=== PATIENT | female | born 1995 | race Caucasian/White ===

== ENCOUNTER 2017-02-11 18:39 | Emergency (ER) | payer OTHER ==
[~2017-02-11] VITALS: Ht 160 cm; Wt 61.6 kg
[2017-02-11 18:44] VITALS: Ht 160 cm; Wt 61.6 kg
[2017-02-11] MEDS ORDERED: SODIUM CHLORIDE 0.9% 1000ML 1,000 ML IV STA (19:26)
[2017-02-11] MEDS ORDERED: GI COCKTAIL PO STA (19:26)
[2017-02-11] MEDS ORDERED: SUCR1TAB PO (19:49)
[2017-02-11] MEDS ORDERED: CYM/30 PO (19:49)
[2017-02-11] MEDS ORDERED: PRLSR20 PO (19:49)
[2017-02-11] MEDS ORDERED: ONDA4TAB10 SL (19:49)
--- NOTE | 2017-02-11 19:50 | EMERGENCY ROOM VISIT NOTE ---
History Report prepared by Elda: Shi Mcgrath Under the Supervision of: Dr. Patricio William M.D. First contact with patient: 18:59 Chief Complaint: ILLNESS Stated Complaint: CHEST PAIN, NAUSEA, LIGHTHEADED, DIZZY History of Present Illness The patient is a 21 year old female who presents to the Emergency Room with complaints of a constant illness beginning 3 weeks ago. The patient states that she has had intermittent chest pain, intermittent shortness of breath, and stabbing right rib pain over the last few weeks. She reports that she has had constant nausea and complains of dizziness, lightheadedness, dark urine, chills , and decreased appetite. She notes that she saw her PCP 2 weeks ago for these symptoms and was put on Prilosec and Zofran without relief of her symptoms. The patient states that she has been seen in the [place] ED and got nausea and acid reflux medication there as well and was told to follow up with her PCP. She reports the she cannot be seen by her PCP until the end of this week. Today she states that her symptoms have worsened. She notes that her chest pain is not worsened by eating or exertion and lasts for 5-10 minutes intermittently. She denies any fever, cough, congestion, chance of , and dysuria. The patient reports no family history of heart attacks at a young age or gallstones. She does state that greasy meals intermittently worsen her abdominal pain. She notes that she previously had diarrhea but now has some constipation. Source of History: patient Onset: 3 weeks ago Position: other (global) Quality: other (illness) Timing: constant Modifying Factors (Worsening): other (none) Associated Symptoms: + chills, + chest pain, + SOB, + nausea, No fevers, No cough Note: Pt complains of dizziness, lightheadedness, dark urine, and decreased appetite. She denies any congestion, chance of , and dysuria. Review of Systems See HPI for pertinent positives and negatives. A total of ten systems were reviewed and were otherwise negative. Past Medical & Surgical Medical Problems: (1) No Known Active Medical Problems Family History No pertinent family history stated. Social History Smoking Status: Current Every Day Smoker Marital Status: Housing Status: lives with significant other Current/Historical Medications Scheduled Duloxetine HCl (Cymbalta), 30 MG PO DAILY Famotidine (Pepcid), 1 TAB PO BID Nitrofurantoin Macrocrystals (Macrodantin), 1 CAP PO BID Omeprazole (Prilosec), 20 MG PO DAILY Sucralfate (Sucralfate), 1 GM PO QID Scheduled PRN Ondasetron Odt (Zofran Odt), 4 MG SL Q6H PRN for Nausea Allergies Coded Allergies: No Known Allergies (Unverified , 02/11/17) Physical Exam Vital Signs Date Time Temp Pulse Resp B/P (MAP) Pulse Ox O2 Delivery O2 Flow Rate FiO2 02/11/17 22:48 36.6 69 18 113/67 99 02/11/17 21:20 68 20 102/61 99 Room Air 02/11/17 18:44 36.6 125 16 109/68 96 Room Air Physical Exam GENERAL: Awake, alert, well-appearing, in no distress HENT: Normocephalic, atraumatic. Dry mucous membranes. EYES: Normal conjunctiva. Sclera non-icteric. NECK: Supple. No nuchal rigidity. FROM. No JVD. RESPIRATORY: Clear to auscultation. CARDIAC: Regular rate, normal rhythm. Extremities warm and well perfused. Pulses equal. ABDOMEN: Soft, non-distended. Mild tenderness in epigastrium and RUQ, no peritoneal signs. No rebound or guarding. No masses. RECTAL: Deferred. MUSCULOSKELETAL: Chest examination reveals no tenderness. The back is symmetrical on inspection without obvious abnormality. There is no CVA tenderness to palpation. No joint edema. LOWER EXTREMITIES: Calves are equal size bilaterally and non-tender. No edema. No discoloration. NEURO: Normal sensorium. No sensory or motor deficits noted. SKIN: No rash or jaundice noted. Medical Decision & Procedures ER Provider Diagnostic Interpretation: X-ray: Per my interpretation, radiologist review. CHEST ONE VIEW PORTABLE FINDINGS: Cardiomediastinal silhouette normal. Lungs and pleural spaces clear. Osseous structures and upper abdomen normal. IMPRESSION: 1. No acute cardiopulmonary disease. Electronically signed by: Prabhu Mcgill M.D. 02/11/2017 7:58 PM Dictated Date/Time: 02/11/2017 7:58 PM RUQ ULTRASOUND No gallstones no pericholecystic fluid. Laboratory Results 02/11/17 20:13 Red Blood Count 4.80, Mean Corpuscular Volume 87.5, Mean Corpuscular Hemoglobin 30.6, Mean Corpuscular Hemoglobin Concent 35.0, Mean Platelet Volume 10.3, Neutrophils (%) (Auto) 50.7, Lymphocytes (%) (Auto) 38.5, Monocytes (%) (Auto) 7.8, Eosinophils (%) (Auto) 2.3, Basophils (%) (Auto) 0.7, Neutrophils # (Auto) 3.83, Lymphocytes # (Auto) 2.91, Monocytes # (Auto) 0.59, Eosinophils # (Auto) 0.17, Basophils # (Auto) 0.05 02/11/17 20:13 Test 02/11/17 20:10 02/11/17 20:13 Urine Color YELLOW Urine Appearance CLOUDY (CLEAR) Urine pH 6.5 (4.5-7.5) Urine Specific [place] 1.024 (1.000-1.030) Urine Protein NEG (NEG) Urine Glucose (UA) NEG (NEG) Urine Ketones NEG (NEG) Urine Occult Blood TRACE (NEG) Urine Nitrite NEG (NEG) Urine Bilirubin NEG (NEG) Urine Urobilinogen NEG (NEG) Urine Leukocyte Esterase MODERATE (NEG) Urine WBC (Auto) >30 /hpf (0-5) Urine RBC (Auto) 5-10 /hpf (0-4) Urine Hyaline Casts (Auto) 0 /lpf (0-5) Urine Epithelial Cells (Auto) >30 /lpf (0-5) Urine Bacteria (Auto) 1+ (NEG) Urine Pathogenic Casts /lpf (0) Urine Mucus PRESENT (NONE PRSENT) White Blood Count 7.55 K/uL (4.8-10.8) Red Blood Count 4.80 M/uL (4.2-5.4) Hemoglobin 14.7 g/dL (12.0-16.0) Hematocrit 42.0 % (37-47) Mean Corpuscular Volume 87.5 fL (80-100) Mean Corpuscular Hemoglobin 30.6 pg (25-34) Mean Corpuscular Hemoglobin Concent 35.0 g/dl (32-36) Platelet Count 215 K/uL (130-400) Mean Platelet Volume 10.3 fL (7.4-10.4) Neutrophils (%) (Auto) 50.7 % Lymphocytes (%) (Auto) 38.5 % Monocytes (%) (Auto) 7.8 % Eosinophils (%) (Auto) 2.3 % Basophils (%) (Auto) 0.7 % Neutrophils # (Auto) 3.83 K/uL (1.4-6.5) Lymphocytes # (Auto) 2.91 K/uL (1.2-3.4) Monocytes # (Auto) 0.59 K/uL (0.11-0.59) Eosinophils # (Auto) 0.17 K/uL (0-0.5) Basophils # (Auto) 0.05 K/uL (0-0.2) RDW Standard Deviation 40.4 fL (36.4-46.3) RDW Coefficient of Variation 12.6 % (11.5-14.5) Immature Granulocyte % (Auto) 0.0 % Immature Granulocyte # (Auto) 0.00 K/uL (0.00-0.02) Anion Gap 5.0 mmol/L (3-11) Est Creatinine Clear Calc Drug Dose 95.2 ml/min Estimated GFR () 128.1 Estimated GFR (Non- 110.6 BUN/Creatinine Ratio 11.4 (10-20) Calcium Level 8.9 mg/dl (8.5-10.1) Total Bilirubin 0.8 mg/dl (0.2-1) Direct Bilirubin 0.2 mg/dl (0-0.2) Aspartate Amino Transf (AST/SGOT) 12 U/L (15-37) Alanine Aminotransferase (ALT/SGPT) 24 U/L (12-78) Alkaline Phosphatase 72 U/L (45-117) Troponin I < 0.015 ng/ml (0-0.045) Total Protein 7.6 gm/dl (6.4-8.2) Albumin 3.9 gm/dl (3.4-5.0) Lipase 115 U/L (73-393) Human Chorionic Gonadotropin, Qual NEG (NEG) Laboratory results reviewed by me Medications Administered Medications (Trade) Dose Ordered Sig/Luke Route Start Time Stop Time Status Last Admin Dose Admin Sodium Chloride 1,000 ml @ 999 mls/hr Q1H1M STAT IV 02/11/17 19:26 02/11/17 20:26 DC 02/11/17 19:26 999 MLS/HR Miscellaneous Medication (Gi Cocktail) 24 ml NOW STAT PO 02/11/17 19:26 02/11/17 19:29 DC 02/11/17 19:26 24 ML Al Hydroxide/Mg Hydroxide (Maalox Susp) 30 ml STK-MED ONCE .ROUTE 02/11/17 20:14 02/11/17 20:15 DC 02/11/17 20:14 30 ML Lidocaine HCl (Viscous Lidocaine 2% Soln) 20 ml STK-MED ONCE .ROUTE 02/11/17 20:14 02/11/17 20:15 DC 02/11/17 20:14 20 ML Famotidine (Pepcid 20mg/100 ml) 20 mg STK-MED ONCE .ROUTE 02/11/17 21:15 02/11/17 21:16 DC 02/11/17 21:17 20 MG ECG Indication: chest pain Rate (beats per minute): 84 Rhythm: normal sinus Findings: no acute ischemic change, other (normal intervals) ED Course 1858: The patient was evaluated in room B12B. A complete history and physical exam was performed. 1925: GI Cocktail 24ml PO, Sodium Chloride 1000 ml @ 999 mls/hr IV. 2110: Famotidine 20mg/Dextrose 102ml @ 200mls/hr IV. 2114: Famotidine 20mg. 2212: I reevaluated and updated the patient. 2225: I reevaluated the patient. Discussed results and discharge instructions: She verbalized understanding and agreement. The patient is ready for discharge. Medical Decision I reviewed the patient's past medical history, medications, and the nursing notes as described above. Differential diagnosis includes gastritis, peptic ulcer, biliary colic, less likely cholecystitis, ari/myocarditis, less likely ACS. Patient presents to ED with c/o of epigastric pain, CP, n/v ongoing for past several weeks per HPI. Arrives in NAD, AFVSS. EKG unremarkable and trop negative in the setting of weeks of sx thus ari-myocarditis not likely. CXR negative. WBC, LFTs, and lipase wnl. Bedside US negative for gallstones or pericholecystic fluid. Sx improved after IVF, GI cocktail, and pepcid. Sx most c /w gastritis vs PUD. Otherwise, UA dirty but showing WBC and LE+. Patient denies any urinary sx however consider RBC also present will tx with macrobide. Otherwise, plan for pepcid in addition to her current omeprazole and pcp f/u. Patient agreeable and d/c'd per dci. Medication Reconcilliation Current Medication List: was personally reviewed by me Blood Pressure Screening Patient's blood pressure: Normal blood pressure Blood pressure disposition: Did not require urgent referral Impression Primary Impression: Gastritis Additional Impression: UTI (urinary tract infection) Scribe Attestation The scribe's documentation has been prepared under my direction and personally reviewed by me in its entirety. I confirm that the note above accurately reflects all work, treatment, procedures, and medical decision making performed by me. Departure Information Dispostion Home / Self-Care Prescriptions Nitrofurantoin Macrocrystals (Macrodantin) 100 Mg Cap 1 CAP PO BID for 7 Days, #14 CAP Prov: Patricio William M.D. 02/11/17 Famotidine (PEPCID) 20 Mg Tab 1 TAB PO BID for 7 Days, #14 TAB 5 Refills Prov: Patricio William M.D. 02/11/17 Referrals No Doctor, Assigned (PCP) Forms HOME CARE DOCUMENTATION FORM, IMPORTANT VISIT INFORMATION, WORK / SCHOOL INSTRUCTIONS Patient Instructions ED Gastritis, ED UTI Cystitis Female, My [facility] Additional Instructions Please follow up with your primary care physician in the next 1-3 days. Her labs showed a urinary tract infection. Otherwise, your exam, EKG, ultrasound, and lab results did not show signs of an emergent condition. Take Pepcid and your antibiotic as directed. Return to the emergency department for worsening symptoms as described in the accompanying instructions. Problem Qualifiers
--- NOTE | 2017-02-11 20:00 | DIAGNOSTIC IMAGING REPORT ---
CHEST ONE VIEW PORTABLE CLINICAL HISTORY: 21 years-old Female presenting with cp. TECHNIQUE: Portable upright AP view of the chest was obtained. COMPARISON: None. FINDINGS: Cardiomediastinal silhouette normal. Lungs and pleural spaces clear. Osseous structures and upper abdomen normal. IMPRESSION: 1. No acute cardiopulmonary disease. Electronically signed by: Prabhu Mcgill M.D. 02/11/2017 7:58 PM Dictated Date/Time: 02/11/2017 7:58 PM
[2017-02-11] MEDS ORDERED: LIDOCAINE HCL 2% VISC SOLN 20 ML UDC ONE (20:14)
[2017-02-11] MEDS ORDERED: ALUMINUM/MAGNESIUM SUSP 30 ML UDC ONE (20:14)
[2017-02-11 20:27] LABS: BASO % 0.7 %; BASO ABS # 0.05 K/uL (0-0.2); COMPLETE YES; EOS % 2.3 %; LYMPH % 38.5 %; LYMPH ABS # 2.91 K/uL (1.2-3.4); MEAN CELL VOLUME 87.5 fL (80-100); MEAN CORPUSCULAR HEMOGLOBIN 30.6 pg (25-34); MEAN PLATELET VOLUME 10.3 fL (7.4-10.4); MONO % 7.8 %; NEUT % 50.7 %; PLATELET COUNT 215 K/uL (130-400); WHITE BLOOD COUNT 7.55 K/uL (4.8-10.8)
[2017-02-11 20:33] LABS: URINE APPEARANCE CLOUDY (CLEAR); URINE BILIRUBIN NEG (NEG); URINE COLOR YELLOW; URINE EPITHELIAL CELL AUTO >30 /lpf (0-5); URINE NITRITE NEG (NEG); URINE PH 6.5 (4.5-7.5); URINE SPECIFIC GRAVITY 1.024 (1.000-1.030); UROBILINOGEN NEG (NEG); ZZUR CULT IF INDIC CLEAN CATCH YES
[2017-02-11 20:37] LABS: MANUAL MICROSCOPIC REQUIRED? NO; REVIEW REQ? YES
[2017-02-11 20:44] LABS: ALT/SGPT 24 U/L (12-78); AST/SGOT 12 U/L (15-37); BLOOD UREA NITROGEN 9 mg/dl (7-18); BUN/CREATININE RATIO 11.4 (10-20); CALCIUM 8.9 mg/dl (8.5-10.1); CARBON DIOXIDE 28 mmol/L (21-32); CHLORIDE 109 mmol/L (98-107); CREATININE 0.76 mg/dl (0.60-1.20); GLUCOSE 87 mg/dl (70-99); POTASSIUM 3.4 mmol/L (3.5-5.1); SODIUM 142 mmol/L (136-145)
[2017-02-11 20:48] LABS: URINE MUCUS PRESENT (NONE PRSENT)
[2017-02-11 20:49] LABS: PREG INTERNAL NEGATIVE QC NEG CLEAR BACKGROUND; PREG INTERNAL POSITIVE QC POS CONTROL LINE
[2017-02-11 20:53] LABS: ALKALINE PHOSPHATASE 72 U/L (45-117)
[2017-02-11] MEDS ORDERED: FAMOTIDINE IV INJ 20 MG in DEXTROSE 5% 100ML 100 ML IV STA (21:11)
[2017-02-11] MEDS ORDERED: FAMOTIDINE 20MG/102 ML D5W ONE (21:15)
[2017-02-11] MEDS ORDERED: NITR1CAP32 PO (22:23)
[2017-02-11] MEDS ORDERED: FAMO20TA9 PO (22:23)
[2017-02-11 22:48] VITALS: BP 113/67; PULSE 69; TEMP 36.6; O2SAT 99
== END 2017-02-11 22:52 | disposition home or self-care (01) ==
LOC: C.EDB 18:42
DX: K29.70 Gastritis, unspecified, without bleeding (principal); N39.0 Urinary tract infection, site not specified; F17.210 Nicotine dependence, cigarettes, uncomplicated; Z79.899 Other long term (current) drug therapy